=== PATIENT | male | born 1975 | race Caucasian/White ===

== ENCOUNTER 2021-10-13 02:16 | Emergency (ER) | payer MEDICAID ==
[~2021-10-13] VITALS: Ht 175.3 cm; Wt 95.3 kg
[2021-10-13 02:23] VITALS: BP 153/107
--- NOTE | 2021-10-13 02:29 | NUR ---
PT BACK IN LOBBY.
[2021-10-13 03:19] VITALS: BP 153/107
--- NOTE | 2021-10-13 03:19 | NUR ---
Patient discharged with v/s stable. pt left without paperwork. unable to cut off wrist band. Patient verbalized understanding. Ambulatory with steady gait. All questions addressed prior to discharge. Advised to follow up with PMD.
== END 2021-10-13 03:19 | disposition home or self-care (01) ==
LOC: MED 02:16
DX: R20.2 Paresthesia of skin (principal); F17.210 Nicotine dependence, cigarettes, uncomplicated; Z88.6 Allergy status to analgesic agent; Z88.5 Allergy status to narcotic agent
CPT/HCPCS: 99281